=== PATIENT | female | born 1980 | race Caucasian/White ===

== ENCOUNTER 2018-05-16 09:00 | Inpatient (IN) | payer OTHER ==
[~2018-05-16] VITALS: Ht 160 cm; Wt 83.9 kg
== END 2018-05-21 10:17 | DRG 743 ==
LOC: SURH 05-18 07:00 → O/R 05-18 10:45 → OB/GYN 05-18 10:45
PROVIDERS: Obstetrics & Gynecology
PROC: 0UT90ZZ Resection of Uterus, Open Approach (ICD-10-PCS; principal; 2018-05-18 07:00)
DX: D25.1 Intramural leiomyoma of uterus (principal)